=== PATIENT | female | born 1995 | race Caucasian/White ===

== ENCOUNTER 2016-09-01 18:27 | Emergency (ER) | payer OTHER ==
[~2016-09-01] VITALS: Ht 144.8 cm; Wt 54.4 kg
[~2016-09-01 18:27] MED LIST: BACTRIM DS TAB1 EACH PO
[2016-09-01] MEDS ORDERED: TRINATE TABLET1 TAB PO (18:56)
[2016-09-01] MEDS ORDERED: IBUPROFEN 800800 M1 PO (18:57)
[2016-09-01 19:13] LABS: BASOPHILS 0.2 % (0.0-2.0); EOSINOPHILS 2.5 % (0.0-3.0); HEMATOCRIT 32.1 % (37.0-47.0); HEMOGLOBIN 10.9 gm/dL (12.0-15.0); LYMPHOCYTES 21.7 % (24.0-44.0); MCH 28.1 pg (26.0-34.0); MCHC 33.8 g/dL (28.0-37.0); MCV 83.1 fL (80.0-100.0); MONOCYTES 7.9 % (1.0-8.0); PLATELET COUNT 193 thou/uL (150-400); POLYS 67.7 % (36.0-66.0); RBC 3.86 mil/uL (4.20-5.00); RDW 14.7 % (10.5-14.5); WBC 10.4 thou/uL (4.0-11.0)
[2016-09-01 19:13] LABS: URINE BILIRUBIN NEGATIVE (Negative); URINE BLOOD NEGATIVE (Negative); URINE COLOR YELLOW; URINE GLUCOSE-RANDOM* NEGATIVE (Negative); URINE KETONES NEGATIVE (Negative); URINE LEUKOCYTES-REFLEX TRACE (Negative); URINE PROTEIN (DIPSTICK) NEGATIVE (Negative); URINE SPECIFIC GRAVITY <= 1.005 (1.003-1.035); URINE UROBILINOGEN 0.2 E.U./dl (0.2-1.0)
[2016-09-01 19:14] LABS: MANUAL DIFF NO
[2016-09-01 19:22] LABS: ANION GAP 7 mmol/L (7-16); BUN 11 mg/dL (7-18); CALCIUM 7.8 mg/dL (8.5-10.1); CHLORIDE 107 mmol/L (98-107); CO2 25 mmol/L (21-32); GLUCOSE 84 mg/dL (74-106); POTASSIUM 3.7 mmol/L (3.5-5.1); SODIUM 139 mmol/L (136-145)
[2016-09-01 19:27] LABS: ALBUMIN 3.2 g/dL (3.4-5.0); ALKALINE PHOSPHATASE 72 U/L (46-116); DIRECT BILIRUBIN < 0.1 mg/dL (<0.1-0.3); SGOT 17 U/L (15-37); SGPT 15 U/L (30-65); TOTAL BILIRUBIN 0.1 mg/dL (<0.1-1.0); TOTAL PROTEIN 7.5 g/dL (6.4-8.2)
[2016-09-01] MEDS ORDERED: NORCO 5-325 TA1 EACH PO (20:54)
[2016-09-01] MEDS ORDERED: ZOFRAN ODT4 MG PO (20:54)
[2016-09-01 21:08] VITALS: BP 119/85
== END 2016-09-01 21:10 | disposition home or self-care (01) ==
LOC: ER 18:27
PROVIDERS: Emergency Medicine
DX: N20.0 Calculus of kidney (principal); F10.99 Alcohol use, unspecified with unspecified alcohol-induced disorder